=== PATIENT | female | born 1970 ===

== ENCOUNTER 2025-02-10 06:20 | Day surgery (SDC) | payer BC, SELFPAY | END 2025-02-10 14:42 | disposition home or self-care (01) | LOC: GI 06:20 | PROVIDERS: ATTENDING PHYSICIAN Internal Medicine Gastroenterology | DX: Z12.11 Encounter for screening for malignant neoplasm of colon (principal); Z86.0100 Personal history of colon polyps, unspecified; K64.8 Other hemorrhoids; K63.89 Other specified diseases of intestine; K62.89 Other specified diseases of anus and rectum; D12.4 Benign neoplasm of descending colon | CPT/HCPCS: 45385; 45380; 88305 ==